=== PATIENT | female | born 1980 | race Caucasian/White ===

== ENCOUNTER → 2022-11-03 | Outpatient (CLI) | payer OTHER | LOC: M SLEEP 20:00 | PROVIDERS: ATTEND Physician Assistant | DX: R06.83 Snoring (principal) ==

== ENCOUNTER → 2023-07-24 | Outpatient (CLI) | payer OTHER ==
[~2023-07-24] MED LIST: ATOG30TA PO; CEFD1CAP9 PO; DOXY-443 PO; FAMO10TA50 PO
== END ==
LOC: M WHC 16:12
PROVIDERS: ATTEND Nurse Practitioner Family
DX: Z12.31 Encounter for screening mammogram for malignant neoplasm of breast (principal)

== ENCOUNTER 2023-07-26 01:41 | Emergency (ER) | payer OTHER ==
[~2023-07-26] VITALS: Ht 165.1 cm; Wt 78.9 kg
[2023-07-26] MEDS ORDERED: FAMO10TA50 PO (02:19)
[2023-07-26] MEDS ORDERED: ATOG30TA PO (02:19)
[2023-07-26 02:22] LABS: BASO % 0.2 % (0.0-1.0); EOS # 0.1 10^3/uL (0.0-0.5); EOS % 0.9 % (0.0-3.0); HEMATOCRIT 35.7 % (36.0-47.0); HEMOGLOBIN 12.4 g/dl (12.0-15.5); LYMPH # 2.9 10^3/uL (1.5-5.0); LYMPH % 22.1 % (24.0-44.0); MEAN CORPUSCULAR HGB CONC 34.7 g/dl (32.0-36.5); MEAN CORPUSCULAR VOLUME 86.2 fl (80.0-96.0); MONO % 7.6 % (2.0-8.0); NEUTROPHILS # 8.9 10^3/uL (1.5-8.5); NEUTROPHILS % 68.8 % (36.0-66.0); PLATELET COUNT, AUTOMATED 137 10^3/uL (150-450); RED BLOOD COUNT 4.14 10^6/uL (4.00-5.40); WHITE BLOOD COUNT 12.9 10^3/uL (4.0-10.0)
[2023-07-26 02:42] LABS: RSV AMPLIFICATION NEGATIVE (NEGATIVE)
[2023-07-26 02:43] LABS: CK-MB VALUE MASS < 1.0 NG/ML (<3.6)
[2023-07-26 02:44] LABS: CPK CREATINE PHOSPHOKINASE 69 U/L (34-145); MB/CK RELATIVE INDEX 1.44 (< OR =4)
[2023-07-26 02:45] LABS: CPK CREATINE PHOSPHOKINASE 62 U/L (34-145)
[2023-07-26 02:46] LABS: ALBUMIN 3.5 G/DL (3.2-5.2); ALKALINE PHOSPHATASE 43 U/L (46-116); ALT/SGPT 12 U/L (7.0-40); AST/SGOT 11 U/L (<34); BILIRUBIN,TOTAL 0.6 MG/DL (0.3-1.2); BLOOD UREA NITROGEN 9 MG/DL (9-23); CALCIUM LEVEL 8.9 MG/DL (8.5-10.1); CARBON DIOXIDE LEVEL 26 MMOL/L (20-31); CHLORIDE LEVEL 104 MMOL/L (98-107); CK-MB VALUE MASS < 1.0 NG/ML (<3.6); CREATININE FOR GFR 0.61 MG/DL (0.55-1.30); GLOMERULAR FILTRATION RATE > 60.0 (>58); GLUCOSE, FASTING 99 MG/DL (60-100); MB/CK RELATIVE INDEX 1.61 (< OR =4); POTASSIUM SERUM 3.5 MMOL/L (3.5-5.1); SODIUM LEVEL 135 MMOL/L (136-145); TOTAL PROTEIN 6.4 G/DL (5.7-8.2)
[2023-07-26] MEDS: ONDANSETRON 4MG ORAL DISINTEGRATING TAB PO ONE (06:41)
[2023-07-26 07:17] VITALS: BP 104/51; TEMP 96; O2SAT 97
[2023-07-26] MEDS ORDERED: CEFD1CAP9 PO (07:37)
[2023-07-26] MEDS ORDERED: DOXY-443 PO (07:37)
[2023-07-26] MEDS: CEFDINIR 300 MG CAP (OMNICEF) PO ONE (07:40)
[2023-07-26] MEDS: DOXYCYCLINE HYCLATE 100MG TABLET PO ONE (07:40)
== END 2023-07-26 07:48 | disposition home or self-care (01) ==
LOC: M ED 01:41
DX: R05.9 Cough, unspecified (principal); R09.1 Pleurisy; R82.71 Bacteriuria; G43.909 Migraine, unspecified, not intractable, without status migrainosus; K58.9 Irritable bowel syndrome, unspecified; D69.3 Immune thrombocytopenic purpura; Z79.899 Other long term (current) drug therapy

== ENCOUNTER → 2024-02-04 | Outpatient (CLI) | payer OTHER ==
[~2024-02-04] MED LIST changes: +CETI-24 PO; +CYAN100049 PO; +DOXY-323 PO; -DOXY-443 PO; +ESTR0.5T3 PO; +ONDA-83 PO; +PANT40TA29 PO; +RA M500C PO; +THERTAB52 PO; +VITA100T39 PO
[2024-02-04 13:14] LABS: PLATELET COUNT, AUTOMATED 146 10^3/uL (150-450)
== END ==
LOC: M LAB 12:38
PROVIDERS: ATTEND Nurse Practitioner Family
DX: D64.9 Anemia, unspecified (principal)

== ENCOUNTER 2024-02-05 05:59 | Observation (INO) | payer OTHER ==
[2024-02-05] VITALS (7 sets, daily range): BP systolic 104–118; BP diastolic 64–74; TEMP 97.3–98.2; O2SAT 93–100
[~2024-02-05] VITALS: Ht 163.8 cm; Wt 70.8 kg
[2024-02-05] MEDS: LR 1,000 ML IV SCH ×2 (07:02→14:57)
[2024-02-05] MEDS ORDERED: fentaNYL 250 MCG/5 ML INJECTION As Ordered ONE (07:25)
[2024-02-05] MEDS ORDERED: ONDANSETRON 4MG 2ML VIAL As Ordered ONE (07:25)
[2024-02-05] MEDS ORDERED: dexmedeTOMIDine (4MCG/ML)200MCG/50ML BTL (PRECEDEX) As Ordered ONE (07:25)
[2024-02-05] MEDS ORDERED: ROCURONIUM BROMIDE 50MG/5ML VIAL As Ordered ONE (07:25)
[2024-02-05] MEDS: SCOPOLAMINE 1MG TRANSDERMAL PATCH TOP ONE (07:25)
[2024-02-05] MEDS ORDERED: MIDAZOLAM INJ 2MG/2ML VIAL As Ordered ONE (07:26)
[2024-02-05] MEDS ORDERED: LIDOCAINE 2% 100MG/5ML SDV (FOR ANES.) As Ordered ONE (07:28)
[2024-02-05] MEDS: HEPARIN SOD (PORCINE) 5000UNITS/ML 1ML VIAL/SYRINGE SQ ONE (08:12)
[2024-02-05] MEDS ORDERED: ePHEDrine SULFATE 25 MG/5 ML(5MG/ML) SYRINGE As Ordered ONE (08:15)
[2024-02-05] MEDS: ceFAZolin SOD 2 GM in IV 1 EA IV ONE (08:21)
[2024-02-05] MEDS ORDERED: ACETAMINOPHEN 1000MG 100ML IV BAG As Ordered ONE (08:28)
[2024-02-05] MEDS ORDERED: LACRILUBE (AKWA TEARS) OPHTH OINT 3.5GM As Ordered ONE (08:42)
[2024-02-05] MEDS: EPINEPHrine INJ 1 MG/ML 1ML AMP As Ordered ONE (08:45)
[2024-02-05] MEDS: GENTAMICIN SULF 80MG/2ML VIAL As Ordered ONE (08:45)
[2024-02-05] MEDS: LIDOCAINE 1% MDV 20ML VIAL As Ordered ONE (08:46)
[2024-02-05] MEDS: ceFAZolin 1GM VIAL As Ordered ONE (08:48)
[2024-02-05] MEDS ORDERED: SUGAMMADEX SODIUM 500 MG/5 ML VIAL (BRIDION) As Ordered ONE (09:50)
[2024-02-05] MEDS ORDERED: HYDROmorphone HCL 2MG/ML 1ML VIAL As Ordered ONE (09:50)
[2024-02-05] MEDS: ceFAZolin 2 GM/D5W 50 ML IV BAG As Ordered ONE (12:06)
[2024-02-05] MEDS ORDERED: ONDANSETRON 4MG 2ML VIAL IV PRN ×2 (12:45→13:05)
[2024-02-05] MEDS ORDERED: fentaNYL 100 MCG/2 ML INJECTION IV PRN (12:45)
[2024-02-05] MEDS ORDERED: ACETAMINOPHEN TAB 650MG DOSE (2X325MG) PO PRN (13:05)
[2024-02-05] MEDS: oxyCODONE 5MG TAB PO PRN (13:48)
[2024-02-05] MEDS ORDERED: HOME MED LIST COMPLETE! XX SCH (14:10)
[2024-02-05] MEDS: traMADol 50 MG TAB PO PRN (15:15)
[2024-02-05] MEDS: ceFAZolin SOD 2 GM in IV 1 EA IV SCH (21:16)
[2024-02-05] MEDS: PERCOCET 5MG/325MG TAB PO PRN (21:18)
[2024-02-06] VITALS: BP 104/65; TEMP 97.9; O2SAT 95
[2024-02-06 00:06] VITALS: BP 102/58; TEMP 98.1; O2SAT 96
[2024-02-06 04:23] VITALS: BP 106/62; TEMP 98.1; O2SAT 95
[2024-02-06 08:13] VITALS: BP 98/61; TEMP 98.1; O2SAT 97
[2024-02-06] MEDS ORDERED: PERCOCET PO (08:57)
[2024-02-06] MEDS: PANTOPRAZOLE 40MG TAB (PROTONIX) PO SCH (09:00)
[2024-02-06] MEDS: CYANOCOBALAMIN 500 MCG TAB PO SCH (09:00)
[2024-02-06] MEDS: CETIRIZINE (ZyrTEC) 10 MG TAB PO SCH (09:00)
== END 2024-02-06 11:30 | disposition home or self-care (01) ==
LOC: M SDC 05:59 → M MS5PR 14:25
PROVIDERS: ADMIT Plastic Surgery Surgery of the Hand; ATTEND Plastic Surgery Surgery of the Hand
DX: T85.44XA Capsular contracture of breast implant, initial encounter (principal); N64.4 Mastodynia; N64.81 Ptosis of breast; M54.2 Cervicalgia; M54.6 Pain in thoracic spine; K21.9 Gastro-esophageal reflux disease without esophagitis; Z79.899 Other long term (current) drug therapy
CPT/HCPCS: 19380; 88300; 88302; 96361; 96365; 96366; C9290; G0378; J0131; J0171; J0665; J0690; J1100; J1170; J1580; J2250; J2405; J3010

== ENCOUNTER → 2024-10-05 | Outpatient (CLI) | payer OTHER ==
[~2024-10-05] MED LIST changes: -DOXY-323 PO; +DOXY-441 PO; +PERCOCET PO
== END ==
LOC: M WHC 16:37
PROVIDERS: ATTEND Family Medicine
DX: Z12.31 Encounter for screening mammogram for malignant neoplasm of breast (principal)

== ENCOUNTER → 2025-04-12 | Outpatient (CLI) | payer OTHER | LOC: M WHC 10:37 | PROVIDERS: ATTEND Physician Assistant | DX: D49.3 Neoplasm of unspecified behavior of breast (principal); N64.81 Ptosis of breast; N63.20 Unspecified lump in the left breast, unspecified quadrant; T85.44XD Capsular contracture of breast implant, subsequent encounter; Y83.1 Surgical operation with implant of artificial internal device as the cause of abnormal reaction of the patient, or of later complication, without mention of misadventure at the time of the procedure | CPT/HCPCS: 76642; 77065; G0279 ==